=== PATIENT | male | born 1995 | race Caucasian/White ===

== ENCOUNTER 2025-04-02 00:40 | Day surgery (SDC) | payer OTHER, SELFPAY ==
[2025-03-25 09:13] VITALS: BMI 26.5
--- NOTE | 2025-03-25 09:38 | PC.NURSE ---
[facility] has started construction of its new state of the art ER which will open Spring 2026. With this, we anticipate parking may be a challenge for some our surgical patients and families. Parking spaces are limited but are available for all Surgical, obstetrics, and ER patients sharing this lot. If you arrive and find you are having a hard time finding a parking space, please note that we understand the challenges, please drive around the hospital and park near Hospital Entrance 1. When you enter this entrance, you can ask a volunteer to direct or take you back to the surgical waiting area to check in. We appreciate everyone?s understanding of these expected challenges while we build for your future. Report to hospital entrance 7 to the right of the green pavilion located off [address] next to doctors parking lot, at time _0700_ on date _[phone]_. Planned Procedure Time: _0900_.? Time changes happen often and if your time is changed the preop area will call you the afternoon before. - You and your visitor will be asked to self-screen and do not enter if you have any COVID symptoms. Please call surgeon if you need to reschedule. - A mask is optional within the hospital at this time. - No food or drink from midnight until time of surgery and no smoking, or chewing tobacco (or any form of nicotine). No chewing gum, candy or mints. Take only the following medications with a SIP of water on the morning of surgery: __Divalproex, Clozapine, Benztropine and if needed may use Albuterol, Acetaminophen and or Atropine eye drops. DO NOT STOP ANY OF YOUR OTHER PRESCRIPTION MEDICATIONS PRIOR TO SURGERY EXCEPT THE FOLLOWING Hold all vitamins and supplements for 3 days per anesthesiologist. Medications to discontinue per physician Date to take last [id number]__[phone]____ Please no make-up, nail kinyarwanda, hairspray, perfume, deodorant, or body powder the day of surgery.? No jewelry (including any body piercings) or valuables the day of surgery, leave them at home.? Please take a shower or bath the night before, or the morning of, surgery with an antibacterial soap.? Wear comfortable, loose fitting clothing.? - Jewelry must be removed prior to entering the operating room.? Rings and piercings that are not removed may be cut off. - The hospital will not accept responsibility for valuables.? - Please leave all valuables, including medications, at home the day of surgery. If you are going home after surgery, a licensed shuttle driver must drive you home.? - NO public transportation without another adult if you receive anesthesia. - We recommend that an adult stay with you for 24 hours following discharge. - We also recommend that you do not drive, make important decision, drink alcoholic beverages, or take any drugs that were not prescribed by your health care provider for at least 24 hours after your discharge time. Follow any additional instructions given to you from your surgeon. Telephone instructions given to __Amy___and asked if any additional questions and then verbalized understanding. Patient advised to call surgeon office or pre surgery nurse liaison [phone] if any additional questions.
--- OUTSIDE RECORDS SUMMARY | 2025-04-02 00:43 | XMS_ITS | Patient Health Record ---
Author Organization [facility] Address [address] [place] [address] Care Team Providers Care Tank Insulator Rubber Name Role Phone Dayami Wilks Primary Care Provider Arlyn Farias Unavailable [phone] Reason For Referral No Information Plan Of Treatment No Information
--- NOTE | 2025-04-02 06:52 | P.OP_ITS ---
Procedure Note - Detailed Date of Procedure 04/02/25 Pre-op Diagnosis dupuytrens contracture left hand Post-op Diagnosis Same Procedure Performed left index, middle, ring finger fasciectomy and L MF pipjoint capsulotomy Surgeon Timothy Snyder MD Hiv Cts Specialist Gaudencio Alexander PA-C Anesthesia MAC Description of Procedure INFORMED CONSENT: The patient was seen and examined and marked in the pre-op area.? The patient signed the consent form. PROCEDURE IN DETAIL:The patient taken back to OR on the stretcher in supine position. Time out performed with anesthesia, surgeon and staff agreeing on patient's name site and surgery to be performed SCDs were placed on the lower extremities and inflated. A tourniquet was placed on {left} upper extremity and antibiotics given IV After anesthesia administered sedation I injected {6}cc 1%lidoand 0.5% marcaine plain at the operative site The?{left upper extremity}?was prepped and draped in sterile fashion the??{left upper extremity} was? exsanguinated with Esmarch bandage and tourniquet inflated to 250mmHg I turned my attention 1st to the left index finger are proceeded with making a Onofre incision over the cord going to the PIP joint through skin and dermis with a 15 blade scalpel. Skin flap was elevated. Littler scissors were used to spread through subcutaneous tissue and identified cord near its origin proximally. I circumferentially dissected from the cord and dissected. I proceeded with anterograde dissection of the cord until I was able to achieve full extension of the PIP joint. The radial neurovascular bundle was identified and protected throughout the procedure. I irrigated with normal saline and closure with 4-0 chromic. Next I turned my attention to the left middle finger where I made a Onofre incision over the proximal phalanx through skin and dermis with 15 blade scalpel extending distally past PIP joint and elevated my skin flap and subcutaneous plane. Identified cord near its origin a vaughn in the proximal finger and circumferentially dissected around and then transected it and proceeded with an terograde dissection till I was able to achieve full extension of the PIP joint. There was still some tightness noted in the joint and a thicker pipjoint radial collateral ligament and volar plate was noted and released which improved extension but there was still some persistent elasticity and recoil the finger into flexion but no cord was identified and this appeared to be due to skin tightness. I extended my incision to relax this slightly which did improve finger position. I irrigated with normal saline closure with 4-0 chromic. Next I turned my attention to the left ring finger where I made a Onofre incision over the cord going to the PIP joint. I elevated skin flaps and dissected the cord proximally identifying the neurovascular bundle and protecting it throughout the procedure. I transected the cord and proceed with anterograde dissection until I was able to achieve full extension of the ring finger PIP joint. Irrigated with normal saline and closed with 4-0 chromic. A dressing of xeroform, 4x4, antonia, and a volar splint with fingers straight was applied for patient safety, security, and comfort and secured with an michael bandage after the tourniquet was let down noting the hand was warm and well perfused. The patient was then awaken from anesthesia and transferred to the recovery room in stable condition.? Complications - none EBL- 0cc Disposition - home in stable condition Gaudencio Alexander PA-C was essential for positioning, retraction, closure and dressing placement. [facility] Billing Surgery - Charge Forward: Surgery Billing ([id number] same for gaudencio adding )
--- NOTE | 2025-04-02 06:52 | PM.HPGS ---
History of Present Illness History of Present Illness Chief complaint: dupuytrens contracture left hand Narrative: Patient seen and examined in pre-operative holding area. No interval change in medical history or symptoms. Patient recalls previous discussion of benefits and alternatives to procedure. Continues to desire to proceed with left index, middle and ring finger fasciectomy. Reviewed procedure, post-op expectations and risks including but not limited to bleeding, infection, injury to tendon/nerve/vessel, decreased hand function, stiffness, RSD, no change or worsening of symptoms, recurrence, incomplete release. I discussed the possible use of assistants and their participation in the case. Patient stated understanding and signed the consent form wishing to proceed. Review of Systems Review of Systems: All systems reviewed & are unremarkable except as noted in HPI and below PMFSH Social History Social History (Updated 02/11/25 @ 10:58 by Kirsty Heard) Social History: Caffeine- coffee Years smoked: 10 Smoking status: Current every day smoker Tobacco type: cigarettes Alcohol intake: former Substance use: former Substance use type: marijuana Living arrangements: other Additional living arrangements comments: not guilty insane Meds Home Medications and Allergies Home Medications ?Medication ?Instructions ?Recorded ?Confirmed ?Type acetaminophen 325 mg capsule 650 mg PO DAILY 02/11/25 03/25/25 History albuterol sulfate 90 mcg/actuation 2 inh inhalation Q4H PRN shortness 02/11/25 03/25/25 History aerosol inhaler (Ventolin HFA) of breath or wheezing atropine 1 % eye drops (Isopto 1 drp EACH EYE BID PRN secretions 02/11/25 03/25/25 History Atropine) cholecalciferol (vitamin D3) 25 25 mcg PO DAILY 02/11/25 04/02/25 History mcg (1,000 unit) capsule clozapine 200 mg tablet 200 mg PO DAILY 02/11/25 04/02/25 History divalproex 250 mg tablet,delayed 250 mg PO DAILY 02/11/25 04/02/25 History release divalproex 500 mg tablet,delayed 500 mg PO DAILY 02/11/25 04/02/25 History release aluminum-magnesium hydroxide 200 30 ml PO TID PRN dyspepsia 03/25/25 03/25/25 History mg-200 mg/5 mL oral suspension benztropine 1 mg tablet 1 mg PO DAILY 03/25/25 04/02/25 History magnesium hydroxide 400 mg/5 mL 30 ml PO DAILY PRN constipation 03/25/25 03/25/25 History oral suspension (Lainez Milk of Magnesia) polyethylene glycol 1 ea miscellaneous DAILY 03/25/25 04/02/25 History psyllium 1 packet PO DAILY 03/25/25 04/02/25 History sennosides 8.6 mg capsule (senna) 8.6 mg PO DAILY 03/25/25 04/02/25 History Allergies Allergy/AdvReac Type Severity Reaction Status Date / Time No Known Allergies Allergy Mild Verified 04/02/25 07:56 Exam Narrative: unchanged Assessment and Plan Assessment and plan (1) Dupuytren contracture of left hand: Code(s): M72.0 - Palmar fascial fibromatosis [Dupuytren] Status: Acute Assessment and Plan: cont as above
[2025-04-02 07:20] VITALS: BP 123/82; PULSE 91; RESP 16; TEMP 36.7; O2SAT 100
[2025-04-02] MEDS: ACETAMINOPHEN 500 MG TABLET 1000 MG PO (07:35)
[2025-04-02] MEDS: LACTATED RINGERS 1,000 ML 30 ML IV CONT (07:40)
--- NOTE | 2025-04-02 08:48 | WPDANESEPPF ---
Anes - Initial Pre Proc Eval Procedure: Operation Date: 04/02/25 09:00 Proposed Procedures p Left Index, Middle and Ring Finger Fasciectomy - Timothy Snyder MD Date/Time: 04/02/25 08:48 Surgeon: Timothy Snyder MD Pre Op Diagnosis: dupuytrens contracture left hand Patient Data Age: 29 Gender: M Height: 1.7 m Weight: 86.4 kg Last Vital Signs Temp 36.7 C 04/02/25 07:20 Pulse 91 04/02/25 07:20 Resp 16 04/02/25 07:20 BP 123/82 04/02/25 07:20 Pulse Ox 100 04/02/25 07:20 O2 Del Method Room Air 04/02/25 07:20 Allergies Allergy/AdvReac Type Severity Reaction Status Date / Time No Known Allergies Allergy Mild Verified 04/02/25 08:07 Home Medications ?Medication ?Instructions ?Recorded ?Confirmed ?Type acetaminophen 325 mg capsule 650 mg PO DAILY 02/11/25 03/25/25 History albuterol sulfate 90 mcg/actuation 2 inh inhalation Q4H PRN shortness 02/11/25 03/25/25 History aerosol inhaler (Ventolin HFA) of breath or wheezing atropine 1 % eye drops (Isopto 1 drp EACH EYE BID PRN secretions 02/11/25 03/25/25 History Atropine) cholecalciferol (vitamin D3) 25 25 mcg PO DAILY 02/11/25 04/02/25 History mcg (1,000 unit) capsule clozapine 200 mg tablet 200 mg PO DAILY 02/11/25 04/02/25 History divalproex 250 mg tablet,delayed 250 mg PO DAILY 02/11/25 04/02/25 History release divalproex 500 mg tablet,delayed 500 mg PO DAILY 02/11/25 04/02/25 History release aluminum-magnesium hydroxide 200 30 ml PO TID PRN dyspepsia 03/25/25 03/25/25 History mg-200 mg/5 mL oral suspension benztropine 1 mg tablet 1 mg PO DAILY 03/25/25 04/02/25 History magnesium hydroxide 400 mg/5 mL 30 ml PO DAILY PRN constipation 03/25/25 03/25/25 History oral suspension (Lainez Milk of Magnesia) polyethylene glycol 1 ea miscellaneous DAILY 03/25/25 04/02/25 History psyllium 1 packet PO DAILY 03/25/25 04/02/25 History sennosides 8.6 mg capsule (senna) 8.6 mg PO DAILY 03/25/25 04/02/25 History Patient hx anesthesia problems: none Family hx anesthesia problems: none Results Review: All pre-operative results and documents have been reviewed as part of the pre-operative evaluation. PMFSH Past Medical History Medical History (Updated 04/02/25 @ 08:51 by Elkin Trimble MD) Asthma Schizophrenia Surgical History Surgical History (Updated 04/02/25 @ 08:51 by Elkin Trimble MD) H/O adenoidectomy Social History Social History Social History: Caffeine- coffee Years smoked: 10 Smoking status: Current every day smoker Tobacco type: cigarettes Alcohol intake: former Substance use: former Substance use type: marijuana Living arrangements: other Additional living arrangements comments: not guilty insane Anes - Eval Final PreProcedure Day of Procedure 04/02/25 08:48 Patient weight: overweight Heart: regular rate and rhythm Lungs: clear to auscultation Airway: Mallampati scale class II Neurological: alert and oriented Last oral intake: >/= 8 hours ASA classification: III Emergent: no Anesthetic plan: proceed Anesthesia type and monitoring: general GIVS and standard monitoring Results Review: All pre-operative results and documents have been reviewed as part of the pre-operative evaluation. Informed Consent: The patient's anesthetic plan and its attendant risks and benefits were discussed with the patient/family/POA. Questions were solicited and answers provided to the satisfaction of the patient/family/POA.
[2025-04-02] MEDS: ceFAZolin 2 GM in SODIUM CHLORIDE 0.9% IV 50 ML 100 ML IVPB (09:03)
[2025-04-02] MEDS: KETOROLAC 30 MG/ML VIAL (*BKC) IV PUSH (09:16)
[2025-04-02] MEDS: LIDOCAINE 1% LOCAL INJ 10 ML VIAL INFILTRATE (09:17)
[2025-04-02] MEDS: BUPivacaine HCL 0.5% 10 ML AMP INFILTRATE (09:18)
--- NOTE | 2025-04-02 09:21 | S_PTH ---
PATIENT: Percy Rios LOC: [facility] U#:[id number] AGE/SX: 29/M ROOM: RE04/02/[address]: Timothy Snyder MD : 1995 BED: DIS: 04/02/2025 SPEC #: [id number] RECD: 04/02/25 11:24 STATUS: ANDERWS REQ #: [id number] SUDHAKAR: 04/02/25 09:[address]: Timothy Snyder DEPT: [facility] Surgical RECD BY: Amena Shultz ENTERED: 04/02/25 11:26 SP TYPE: Surgical OTHR DR: UNKNOWN,DOCTOR Tissues: A - Soft Tissue B - Soft Tissue C - Soft Tissue Procedures: Hematoxylin and Eosin Stain Gross and Microscopic Level 3
[2025-04-02] MEDS: BACITRACIN OINTMENT 15 GM TUBE 1 APPLIC TOPICAL (09:39)
[2025-04-02 10:01] VITALS: BP 119/65; PULSE 101; RESP 16; O2SAT 97
[2025-04-02 10:31] VITALS: BP 117/61; PULSE 83
[2025-04-02 11:01] VITALS: BP 121/74; PULSE 90
== END 2025-04-02 11:20 | disposition home or self-care (01) ==
PROVIDERS: Visit Provider Plastic Surgery
PROC: (CPT 26045; principal; 2025-04-02 09:00)
DX: M72.0 Palmar fascial fibromatosis [Dupuytren] (principal); F17.210 Nicotine dependence, cigarettes, uncomplicated
CPT/HCPCS: 26123; 26125 ×2; 26525; 88304; J0690; A9270; J1100; J1885; J2003; J2250; J2405; J2704; J3010; J7120